=== PATIENT | male | born 2000 | race Caucasian/White ===

== ENCOUNTER 2019-02-10 10:53 | Observation (INO) ==
--- NOTE | 2019-02-10 11:58 | Emergency Department Note ---
History of Present Illness General Chief complaint: Abdominal Pain Stated complaint: RT SIDED ABD PAIN Time Seen by Provider: 02/10/19 11:46 History of Present Illness Maximum Pain Intensity: 8 18-year-old male who presents to the emergency department for evaluation of right lower quadrant abdominal pain. The patient reports that he had "hunger pain" yesterday morning upon awakening. By noontime, he reports generalized central and right lower quadrant abdominal pain that has progressively worsened throughout last evening and this morning. The patient was seen at [facility] this morning, and referred to the emergency department for possible appendicitis. The patient has not noticed any change in urine or stool. The patient does report a history of anal fissure that is scheduled to be repaired by a surgeon either over winter or summer. The patient is a University student, and reports that the surgeon said that it was not an urgent surgical issue. The patient denies any testicular pain, back pain or flank pain. He reports mild nausea without vomiting. He rates his discomfort an 8 out of 10. He has not taken any analgesics for the pain this morning. Home Medications Home Medications Medication Instructions Recorded Confirmed Type ibuprofen [Advil] 200 mg PO Q6H PRN 02/10/19 02/10/19 History Allergies Allergy/AdvReac Type Severity Reaction Status Date / Time No Known Allergies Allergy Unverified 02/10/19 12:07 Past Med/Surg History Medical History Anal fistula Surgical History No significant past surgical history Social History Preferred Language: Icelandic Communication Ability: Effective Center Consultant Required: No Beliefs That Will Affect Care: None marital status: Single Current Living Situation: Other Current Living Situation Comment: [facility] current occupational status: student Other Information That Helps Us Care for You: No Feels Safe at Home: Yes Safety Concerns: Feels Safe At This Time Smoking Status: Never smoker Do You Dip or Chew Tobacco: No ; Hx Alcohol Use: No Hx Substance Use: No Review of Systems 10 system review was performed and was negative except for pertinent positives and negatives as indicated in history of present illness Physical Exam Vital Signs Vital Signs - 24 hr 02/10/19 11:02 02/10/19 13:06 02/10/19 15:40 Temperature 37 C Temperature Source Oral Pulse Rate 121 H 78 Pulse Rate [Apical] Pulse Rate [Finger] 106 H Pulse Rhythm [Apical] Pulse Strength [Finger] Respiratory Rate 18 20 18 Respiratory Effort / Characteristics Non-Labored Spontaneous Respiratory Depth Normal Respiratory Pattern Regular Blood Pressure 116/65 118/65 Blood Pressure [Left Arm] 115/58 L Blood Pressure Mean 82 Blood Pressure Mean [Left Arm] 77 Blood Pressure Position Sitting Blood Pressure Position [Left Arm] Pulse Oximetry 97 98 98 Oxygen Delivery Method Room Air Room Air Room Air Oxygen Flow Rate Sepsis Recent Fever Within 48 Hours No Sepsis New/Unexplained Change in Mental Status No Sepsis Action Taken by Nursing No Action Required 02/10/19 15:48 02/10/19 16:51 02/10/19 17:00 Temperature 37.4 C 36.7 C Temperature Source Oral Temporal Artery Scan Pulse Rate Pulse Rate [Apical] 87 96 H Pulse Rate [Finger] 111 H Pulse Rhythm [Apical] Regular Regular Pulse Strength [Finger] Normal Respiratory Rate 18 11 L 16 Respiratory Effort / Characteristics Non-Labored Spontaneous Non-Labored Spontaneous Non-Labored Spontaneous Respiratory Depth Normal Normal Normal Respiratory Pattern Regular Regular Regular Blood Pressure Blood Pressure [Left Arm] 121/61 112/66 112/73 Blood Pressure Mean Blood Pressure Mean [Left Arm] 81 81 86 Blood Pressure Position Blood Pressure Position [Left Arm] Sitting Lying Lying Pulse Oximetry 98 99 100 Oxygen Delivery Method Room Air Oxymask Oxymask Oxygen Flow Rate 10 10 Sepsis Recent Fever Within 48 Hours Sepsis New/Unexplained Change in Mental Status Sepsis Action Taken by Nursing 02/10/19 17:10 02/10/19 17:20 Temperature Temperature Source Pulse Rate Pulse Rate [Apical] 73 81 Pulse Rate [Finger] Pulse Rhythm [Apical] Regular Regular Pulse Strength [Finger] Respiratory Rate 16 15 Respiratory Effort / Characteristics Non-Labored Spontaneous Non-Labored Spontaneous Respiratory Depth Normal Normal Respiratory Pattern Regular Regular Blood Pressure Blood Pressure [Left Arm] 109/65 116/67 Blood Pressure Mean Blood Pressure Mean [Left Arm] 79 83 Blood Pressure Position Blood Pressure Position [Left Arm] Lying Lying Pulse Oximetry 99 96 Oxygen Delivery Method Oxymask Room Air Oxygen Flow Rate 10 Sepsis Recent Fever Within 48 Hours Sepsis New/Unexplained Change in Mental Status Sepsis Action Taken by Nursing CONSTITUTIONAL: Healthy and well nourished. Alert and oriented X 3. Patient does not appear in any acute distress. HEENT: Normocephalic, atraumatic. Pupils equal, round and reactive. No scleral icterus or conjunctival injection/pallor. NECK: Full active range of motion without discomfort. LYMPHATICS: No cervical chain adenopathy. RESPIRATORY: Clear to auscultation bilaterally with no wheezing, crackles, rhonchi or stridor. CARDIOVASCULAR: Regular rate and rhythm with no murmurs, rubs or gallops. GASTROINTESTINAL: Bowel sounds present in all quadrants. Patient has a positive McBurney's point tenderness, positive Rovsing sign and positive p soas/obturator sign. Negative heel tap. Negative CVA tenderness. No obvious rigidity, guarding or rebound. MUSCULOSKELETAL: Full range of motion of all joints without discomfort. INTEGUMENTARY: No rash or other significant dermatologic conditions noted. HEMATOLOGIC: No ecchymosis or petechiae. PSYCHIATRIC: Positive affect. NEUROLOGIC: No focal neurologic deficits noted. Course Course Patient history and physical exam were performed. Nurse's notes were reviewed. Vital signs were reviewed and were normal. The patient refused any analgesics or antiemetics. Labs were reviewed to show a market leukocytosis of over 18,000 with left shift and bandemia. He is mildly hyponatremic at 135. AST and total bilirubin are also elevated at 68 and 1.2, respectively. Lipase is normal. Urinalysis shows 1+ proteinuria, 4+ ketonuria, hematuria and urine bilirubin. No urine bacteria, leukocyte esterase or nitrites. CT of the abdomen and pelvis with IV contrast confirms an uncomplicated acute appendicitis. The case, including CT imaging and abnormal lab results were discussed with Dr. Shirley, ED attending physician, who recommended surgical consultation. The case was then discussed with Dionne Beltrán PA-C, working with Dr. Sarmiento, who came to the emergency department for further reevaluation. Please see Dr. Sarmiento's dictation for further surgical treatment and final disposition. Administered Medications Ioversol (Optiray 320 100ml) 93 ml IV ONCE PRN PRN Reason: Interaction Checking Stop: 02/14/19 12:52 Last Admin: 02/10/19 12:54 Dose: 93 ml Documented by: [id number] Discontinued Medications Bupivacaine HCl (Marcaine 0.5% Mpf) Confirm Administered Dose 30 ml .ROUTE .K- MED ONE Stop: 02/10/19 15:09 Last Admin: 02/10/19 16:37 Dose: 30 ml Documented by: [id number] Cefoxitin Sodium 2,000 mg/ (Dextrose) 60 mls @ 100 mls/hr IV Q6H [facility] Stop: 02/20/19 15:59 Last Infusion: 02/10/19 18:22 Dose: 0 mls/hr Documented by: [id number] Admin: 02/10/19 15:33 Dose: 100 mls/hr Documented by: [id number] Sodium Chloride (Nss 1000ml) 1,000 mls @ 125 mls/hr IV .Q8H [facility] Stop: 03/12/19 15:14 Last Admin: 02/10/19 18:22 Dose: Not Given Documented by: [id number] Medical Decision Making Medical Records Attestation: I reviewed the patient's medical records. Home Medications Current Medication List: was personally reviewed by me Laboratory Data Attestation: I reviewed the patient's lab results. Result diagrams: 02/10/19 11:32 02/10/19 11:32 Lab Results 02/10/19 02/10/19 02/10/19 Range/Units 11:32 11:32 11:32 WBC 18.01 H (4.8-10.8) K/uL RBC 4.69 L (4.7-6.1) M/uL Hgb 15.0 (14.0-18.0) g/dL Hct 42.7 (42-52) % MCV 91.0 (80-100) fL MCH 32.0 (25-34) pg MCHC 35.1 (32-36) g/dL Plt Count 177 (130-400) K/uL Immature Gran % (Auto) 0.4 % Neut % (Auto) 78.6 % Lymph % (Auto) 6.3 % Elbert % (Auto) 14.5 % Eos % (Auto) 0.1 % Baso % (Auto) 0.1 % Immature Gran # (Auto) 0.07 H (0.00-0.02) K/uL Neut # (Auto) 14.15 H (1.4-6.5) K/uL Lymph # (Auto) 1.14 L (1.2-3.4) K/uL Elbert # (Auto) 2.62 H (0.11-0.59) K/uL Eos # (Auto) 0.01 (0-0.5) K/uL Baso # (Auto) 0.02 (0-0.2) K/uL Sodium 135 L (136-145) mmol/L Potassium 3.7 (3.5-5.1) mmol/L Chloride 104 (98-107) mmol/L Carbon Dioxide 24 (21-32) mmol/L Anion Gap 8.0 (3-11) BUN 13 (7-18) mg/dl Creatinine 1.14 (0.6-1.4) mg/dl Est Cr Clr Drug Dosing 110.8 ml/min Est GFR ( Amer) 107.5 Est GFR (Non-Af Amer) 92.7 BUN/Creatinine Ratio 11.4 (10-20) Glucose 101 H (70-99) mg/dl Calcium 9.3 (8.5-10.1) mg/dl Total Bilirubin 1.2 H (0.2-1) mg/dl AST 68 H (15-37) U/L ALT 31 (12-78) U/L Alkaline Phosphatase 95 (45-117) U/L Total Protein 7.6 (6.4-8.2) gm/dl Albumin 4.0 (3.4-5.0) gm/dl Globulin 3.6 (2.5-4.0) gm/dl Albumin/Globulin Ratio 1.1 (0.9-2) Lipase 112 (73-393) U/L Urine Color Kidder Urine Appearance Clear (Clear) Urine pH 6.0 (4.5-7.5) Ur Specific Gordon 1.038 H (1.000-1.030) Urine Protein 1+ H (Negative) Urine Glucose (UA) Negative (Negative) Urine Ketones 4+ H (Negative) Urine Blood 1+ H (Negative) Urine Nitrite Negative (Negative) Urine Bilirubin 1+ H (Negative) Urine Urobilinogen Negative (Negative) Ur Leukocyte Esterase Negative (Negative) Urine WBC (Auto) 1-5 (0-5) /hpf Urine RBC (Auto) 5-10 H (0-4) /hpf U Hyaline Cast (Auto) 1-5 (0-5) /lpf U Epithel Cells (Auto) 5-10 H (0-5) /lpf Urine Bacteria (Auto) Negative (Negative) Imaging Data Attestation: I personally reviewed and interpreted this imaging study as follows: My Impression: My interpretation of a CT of the abdomen and pelvis with IV contrast shows evidence for acute appendicitis. No other obstructive pattern, free fluid or air appreciated. Radiologist report was also reviewed. Radiologist's Impression: CT SCAN OF THE ABDOMEN AND PELVIS WITH IV CONTRAST CLINICAL HISTORY: Right lower quadrant abdominal pain. COMPARISON STUDY: No priors. TECHNIQUE: Following the IV administration of 93 cc of Optiray 320, CT scan of the abdomen and pelvis is performed from the lung bases to the proximal femora. Images are reviewed in the axial, sagittal, and coronal planes. IV contrast was administered without complication. A dose lowering technique was utilized adhering to the principles of ALARA. CT DOSE: 368.86 mGy.cm FINDINGS: Lung bases: The heart is normal in size and without pericardial effusion. The lung bases are clear. Liver: The contrast-enhanced liver is normal in size, contour, and attenuation. There is no intrahepatic biliary ductal dilatation. The hepatic veins and portal veins are patent. Gallbladder: Unremarkable. Spleen: Normal in size and attenuation. Pancreas: Unremarkable. Adrenal glands: Unremarkable. Kidneys: The contrast enhanced kidneys are normal in size and without hydronephrosis. The kidneys enhance symmetrically. Abdominal vasculature: The abdominal aorta is normal in course and caliber. Bowel: The small bowel and colon are normal in course and caliber. The appendix is distended and fluid-filled measuring up to 1.3 cm in diameter. This is best seen on image #339. The appendiceal wall is thickened and hyperemic. There is periappendiceal inflammation and fluid, and the appearance is consistent with acute appendicitis. No organized fluid collection is seen to indicate abscess. Peritoneum: There is no intraperitoneal free air. There is trace free fluid in the pelvis. There is a small fat-containing umbilical hernia. Lymphadenopathy: None. Pelvic viscera: The bladder, prostate, and seminal vesicles are normal as imaged. Skeletal structures: No lytic or blastic lesions are seen. IMPRESSION: 1. Findings are consistent with acute appendicitis. There is no evidence of abscess or perforation. 2. Trace free fluid in the pelvis is likely on a reactive basis. Blood Pressure Blood Pressure Findings: Normal blood pressure MDM Narrative Patient presents to emergency department with history, and has physical examination findings classic for acute appendicitis. CT imaging does show appendicitis without evidence for perforation or abscess formation. The patient is currently afebrile, but does have a marketed leukocytosis. Additional laboratory studies are not consistent with UTI, pancreatitis, cholecystitis or acute hepatitis. Examination is not consistent with pyelonephritis or diverticulitis. Impression & Plan Acute appendicitis Discharge Plan Visit Data *Final* Discharge Date/Time: 02/10/19 15:40 Chief Complaint: Abdominal Pain Stated Complaint: RT SIDED ABD PAIN ED Provider: Stanley Shirley ED Midlevel Provider: Wilbur Avila Discharge Problem: Acute appendicitis Patient Disposition: Still a Patient Condition: Good Discharge Instructions Interventions: ED Discharge Assessment Last Done: 02/10/19 15:40
[2019-02-10 12:06] LABS: Basophils # (auto) 0.02 K/uL (0-0.2); Basophils % (auto) 0.1 %; Eosinophils # (auto) 0.01 K/uL (0-0.5); Eosinophils % (auto) 0.1 %; Hematocrit (blood only) 42.7 % (42-52); Immature Granulocytes # (auto) 0.07 K/uL (0.00-0.02); Immature Granulocytes % (auto) 0.4 %; Lymphocytes # (auto) 1.14 K/uL (1.2-3.4); Lymphocytes % (auto) 6.3 %; Mean Corpuscular Hgb Conc 35.1 g/dL (32-36); Monocytes # (auto) 2.62 K/uL (0.11-0.59); Monocytes % (auto) 14.5 %; Neutrophils # (auto) 14.15 K/uL (1.4-6.5); Neutrophils % (auto) 78.6 %; Platelet Count 177 K/uL (130-400); Red Blood Count 4.69 M/uL (4.7-6.1); White Blood Count 18.01 K/uL (4.8-10.8)
[2019-02-10 12:12] LABS: BUN Creatinine Ratio 11.4 (10-20); Calcium 9.3 mg/dl (8.5-10.1); Creatinine Clr Calc Pharmacy 110.8 ml/min; Est GFR (African American) 107.5; Est GFR (Non-African American) 92.7; Potassium 3.7 mmol/L (3.5-5.1)
[2019-02-10 12:15] LABS: Albumin Globulin Ratio 1.1 (0.9-2); Bilirubin,Total 1.2 mg/dl (0.2-1); Globulin 3.6 gm/dl (2.5-4.0); Total Protein 7.6 gm/dl (6.4-8.2)
[2019-02-10 12:47] LABS: Appearance Urine Clear (Clear); Bacteria Urine Automated Negative (Negative); Blood Urine 1+ (Negative); Color Urine Orange; Glucose Urine UA Negative (Negative); Leukocyte Esterase Urine Negative (Negative); Nitrite Urine Negative (Negative); Protein Urine 1+ (Negative); Specific Gravity Urine 1.038 (1.000-1.030); Urobilinogen Urine Negative (Negative)
[2019-02-10 12:49] LABS: Bilirubin Urine 1+ (Negative)
[2019-02-10 12:50] LABS: Ketones Urine 4+ (Negative)
[2019-02-10] MEDS ORDERED: IOVERSOL 100ml IV PRN (12:53)
--- NOTE | 2019-02-10 13:12 | CT Scan Report ---
CT SCAN OF THE ABDOMEN AND PELVIS WITH IV CONTRAST CLINICAL HISTORY: Right lower quadrant abdominal pain. COMPARISON STUDY: No priors. TECHNIQUE: Following the IV administration of 93 cc of Optiray 320, CT scan of the abdomen and pelvi s is performed from the lung bases to the proximal femora. Images are reviewed in the axial, sagittal , and coronal planes. IV contrast was administered without complication. A dose lowering technique wa s utilized adhering to the principles of ALARA. CT DOSE: 368.86 mGy.cm FINDINGS: Lung bases: The heart is normal in size and without pericardial effusion. The lung bases are clear. Liver: The contrast-enhanced liver is normal in size, contour, and attenuation. There is no intrahepa tic biliary ductal dilatation. The hepatic veins and portal veins are patent. Gallbladder: Unremarkable. Spleen: Normal in size and attenuation. Pancreas: Unremarkable. Adrenal glands: Unremarkable. Kidneys: The contrast enhanced kidneys are normal in size and without hydronephrosis. The kidneys enh ance symmetrically. Abdominal vasculature: The abdominal aorta is normal in course and caliber. Bowel: The small bowel and colon are normal in course and caliber. The appendix is distended and flu id-filled measuring up to 1.3 cm in diameter. This is best seen on image #339. The appendiceal wall i s thickened and hyperemic. There is periappendiceal inflammation and fluid, and the appearance is con sistent with acute appendicitis. No organized fluid collection is seen to indicate abscess. Peritoneum: There is no intraperitoneal free air. There is trace free fluid in the pelvis. There is a small fat-containing umbilical hernia. Lymphadenopathy: None. Pelvic viscera: The bladder, prostate, and seminal vesicles are normal as imaged. Skeletal structures: No lytic or blastic lesions are seen. IMPRESSION: 1. Findings are consistent with acute appendicitis. There is no evidence of abscess or perforation. 2. Trace free fluid in the pelvis is likely on a reactive basis. Electronically signed by: Bossman Rodríguez M.D. 02/10/2019 1:11 PM
--- NOTE | 2019-02-10 14:42 | History & Physical Report ---
Date of Service February 10, 2019 Assessment & Plan (1) Acute appendicitis: 18 year-old male with one day history of abdominal pain that progressively increased in nature now to RLQ with no associated fever, chills, nausea, or vomiting. CT scan with IV Contrast showing dilated appendix at 1.3 cm with periappendiceal infiltration and fluid but no fluid collection to suggest abscess or perforation. Leukocytosis of 18 with left shift. Plan: Discussed imaging findings and labs with patient. Given appendix dilatation and CT findings, recommend laparoscopic appendectomy possible open. Discussed procedure and risks with patient along with recovery period. All questions were answered Will start on IV fluids and IV Cefoxitin now. Keep NPO Dr. Sarmiento to evaluate patient and obtain consent awaiting for mom to arrive Pt seen and examined with DANIELA Deng. Agree with assessment and plan above. Risks of appendectomy personally reviewed including bleeding,infection, conversion to open, negative appy, postop ileus/ abscess. Consent signed. For OR today. History of Present Illness Chief Complaint: Right lower abdominal pain Primary Care Provider: [facility] Gordo is a 18 year-old male who presented to emergency department with complaint of abdominal pain that began yesterday morning. States pain was more generalized yesterday and increased in severity throughout the day and night. States pain is now located in right lower side. Denies of any previous similar abdominal pain. Denies of any associated fever, chills, nausea, vomiting, anorexia, changes in bowel habits, diarrhea, constipation, blood in stools, difficulty urinating, dysuria, hematuria. Last ate last evening and had some water at 9 am. Er work-up included labs which showed leukocytosis of 18k. CT scan of abdomen and pelvis with IV contrast showing distended appendix at 1. 3 cm with periappendiceal inflammation and fluid. No fluid collection to suggest abscess consistent with noncomplicated acute appendicitis Gordo states pain is manageable if he lies still and does not move. Movement makes pain worse. Has not received any pain medication. Mom is currently traveling from [facility]. Allergies Allergy/AdvReac Type Severity Reaction Status Date / Time No Known Allergies Allergy Unverified 02/10/19 12:07 Home Medications Home Medications Medication Instructions Recorded Confirmed Type ibuprofen [Advil] 200 mg PO Q6H PRN 02/10/19 02/10/19 History Past Med/Surg History Medical History Anal fistula Surgical History No significant past surgical history Social History (Updated 02/10/19 @ 11:58 by Wilbur Avila) Preferred Language: Togolese marital status: Single current occupational status: student Feels Safe at Home: Yes Smoking Status: Never smoker Physical Exam Constitutional: WD/WN, vitals as above no acute distress Respiratory: normal respiratory effort, lungs clear to auscultation Cardiovascular: Rate/Rhythm: regular rhythm and + tachycardic Heart Sounds: normal S1 and normal S2 Gastrointestinal (Abdomen): Inspection/Auscultation: abdomen normal to inspection; abdomen not distended Percussion/Palpation: + abdomen tender (RLQ, positive mcburneys point, rosvings sign) Skin: no rashes, warm and dry Psychiatric: A+Ox3, euthymic affect Results & Data Vital Signs (Past 12 Hours) Vital Signs Temp Pulse Pulse Resp BP BP Pulse Ox 02/10/19 13:06 106 H 20 115/58 L 98 02/10/19 11:02 37 C 121 H 18 116/65 97 Laboratory Results 02/10/19 02/10/19 02/10/19 Range/Units 11:32 11:32 11:32 WBC 18.01 H (4.8-10.8) K/uL RBC 4.69 L (4.7-6.1) M/uL Hgb 15.0 (14.0-18.0) g/dL Hct 42.7 (42-52) % MCV 91.0 (80-100) fL MCH 32.0 (25-34) pg MCHC 35.1 (32-36) g/dL Plt Count 177 (130-400) K/uL Immature Gran % (Auto) 0.4 % Neut % (Auto) 78.6 % Lymph % (Auto) 6.3 % Dolores % (Auto) 14.5 % Eos % (Auto) 0.1 % Baso % (Auto) 0.1 % Immature Gran # (Auto) 0.07 H (0.00-0.02) K/uL Neut # (Auto) 14.15 H (1.4-6.5) K/uL Lymph # (Auto) 1.14 L (1.2-3.4) K/uL Dolores # (Auto) 2.62 H (0.11-0.59) K/uL Eos # (Auto) 0.01 (0-0.5) K/uL Baso # (Auto) 0.02 (0-0.2) K/uL Sodium 135 L (136-145) mmol/L Potassium 3.7 (3.5-5.1) mmol/L Chloride 104 (98-107) mmol/L Carbon Dioxide 24 (21-32) mmol/L Anion Gap 8.0 (3-11) BUN 13 (7-18) mg/dl Creatinine 1.14 (0.6-1.4) mg/dl Est Cr Clr Drug Dosing 110.8 ml/min Est GFR ( Amer) 107.5 Est GFR (Non-Af Amer) 92.7 BUN/Creatinine Ratio 11.4 (10-20) Glucose 101 H (70-99) mg/dl Calcium 9.3 (8.5-10.1) mg/dl Total Bilirubin 1.2 H (0.2-1) mg/dl AST 68 H (15-37) U/L ALT 31 (12-78) U/L Alkaline Phosphatase 95 (45-117) U/L Total Protein 7.6 (6.4-8.2) gm/dl Albumin 4.0 (3.4-5.0) gm/dl Globulin 3.6 (2.5-4.0) gm/dl Albumin/Globulin Ratio 1.1 (0.9-2) Lipase 112 (73-393) U/L Urine Color Talbot Urine Appearance Clear (Clear) Urine pH 6.0 (4.5-7.5) Ur Specific [place] 1.038 H (1.000-1.030) Urine Protein 1+ H (Negative) Urine Glucose (UA) Negative (Negative) Urine Ketones 4+ H (Negative) Urine Blood 1+ H (Negative) Urine Nitrite Negative (Negative) Urine Bilirubin 1+ H (Negative) Urine Urobilinogen Negative (Negative) Ur Leukocyte Esterase Negative (Negative) Urine WBC (Auto) 1-5 (0-5) /hpf Urine RBC (Auto) 5-10 H (0-4) /hpf U Hyaline Cast (Auto) 1-5 (0-5) /lpf U Epithel Cells (Auto) 5-10 H (0-5) /lpf Urine Bacteria (Auto) Negative (Negative) Diagnostic Findings CT SCAN OF THE ABDOMEN AND PELVIS WITH IV CONTRAST CLINICAL HISTORY: Right lower quadrant abdominal pain. COMPARISON STUDY: No priors. TECHNIQUE: Following the IV administration of 93 cc of Optiray 320, CT scan of the abdomen and pelvis is performed from the lung bases to the proximal femora. Images are reviewed in the axial, sagittal, and coronal planes. IV contrast was administered without complication. A dose lowering technique was utilized adhering to the principles of ALARA. CT DOSE: 368.86 mGy.cm FINDINGS: Lung bases: The heart is normal in size and without pericardial effusion. The lung bases are clear. Liver: The contrast-enhanced liver is normal in size, contour, and attenuation. There is no intrahepatic biliary ductal dilatation. The hepatic veins and portal veins are patent. Gallbladder: Unremarkable. Spleen: Normal in size and attenuation. Pancreas: Unremarkable. Adrenal glands: Unremarkable. Kidneys: The contrast enhanced kidneys are normal in size and without hydronephrosis. The kidneys enhance symmetrically. Abdominal vasculature: The abdominal aorta is normal in course and caliber. Bowel: The small bowel and colon are normal in course and caliber. The appendix is distended and fluid-filled measuring up to 1.3 cm in diameter. This is best seen on image #339. The appendiceal wall is thickened and hyperemic. There is periappendiceal inflammation and fluid, and the appearance is consistent with acute appendicitis. No organized fluid collection is seen to indicate abscess. Peritoneum: There is no intraperitoneal free air. There is trace free fluid in the pelvis. There is a small fat-containing umbilical hernia. Lymphadenopathy: None. Pelvic viscera: The bladder, prostate, and seminal vesicles are normal as imaged. Skeletal structures: No lytic or blastic lesions are seen. IMPRESSION: 1. Findings are consistent with acute appendicitis. There is no evidence of abscess or perforation. 2. Trace free fluid in the pelvis is likely on a reactive basis. Code Status & VTE Plan VTE Prophylaxis Plan VTE Prophylaxis will be ordered: Yes
[2019-02-10] MEDS ORDERED: LIDOCAINE HCL 2% 2 ML VIAL/AMP(20MG/ML) INFIL ONE (15:07)
[2019-02-10] MEDS ORDERED: DEXAMETHASONE SOD INJ 4 MG/ML VIAL ONE (15:07)
[2019-02-10] MEDS ORDERED: ONDANSETRON INJ 2 MG/ML 2 ML VIAL ONE (15:07)
[2019-02-10] MEDS ORDERED: PROPOFOL IV EMULSION 10 MG/ML 20 ML VIAL IV ONE (15:07)
[2019-02-10] MEDS ORDERED: NEOSTIGMINE METHYLSULFATE 5 MG/5 ML SYR ONE (15:07)
[2019-02-10] MEDS ORDERED: GLYCOPYRROLATE 0.2 MG/ML VIAL ONE ×2 (15:07→16:32)
[2019-02-10] MEDS ORDERED: fentaNYL citrate 100 MCG/2 ML VIAL ONE ×2 (15:07→16:21)
[2019-02-10] MEDS ORDERED: MIDAZOLAM HCL 1 MG/ML 2ML VIAL ONE (15:07)
[2019-02-10] MEDS ORDERED: BUPIVACAINE 0.5 % 5 MG/1 ML MPF 30ML VIAL ONE (15:08)
[2019-02-10] MEDS ORDERED: fentaNYL citrate 100 MCG/2 ML VIAL IV PRN (15:14)
[2019-02-10] MEDS ORDERED: HYDROmorphone INJ 1 MG/ML SYRINGE IV PRN (15:14)
[2019-02-10] MEDS ORDERED: ONDANSETRON INJ 2 MG/ML 2 ML VIAL IV PRN ×2 (15:14→17:56)
[2019-02-10] MEDS ORDERED: ePHEDrine sulfate 50 MG/ML AMP IV PRN (15:14)
[2019-02-10] MEDS ORDERED: ATROPINE SULFATE 0.1 MG/ML 10ML SYR IV PRN (15:14)
[2019-02-10] MEDS ORDERED: SODIUM CHLORIDE 0.9% 1000ML 1,000 ML IV SCH (15:15)
--- NOTE | 2019-02-10 15:19 | Anesthesiology Consultation ---
Date of Service February 10, 2019 Assessment & Plan (1) Encounter for pre-operative examination: Chart Review Chart Review: Acceptable Risk for Surgery and Patient NOT seen in Pre Admission Testing Consults Requested none History Surgery Operation Date: 02/10/19 07:30 Proposed Procedures p Laparoscopic Appendectomy - Bhargavi Sarmiento MD Height/Weight Height: 5 ft 8.5 in Weight: 83.5 kg Allergies Allergy/AdvReac Type Severity Reaction Status Date / Time No Known Allergies Allergy Unverified 02/10/19 12:07 Medications Home Medications Medication Instructions Recorded Confirmed Last Taken ibuprofen [Advil] 200 mg PO Q6H PRN 02/10/19 02/10/19 02/09/19 Active Medications Generic Name Dose Route Start Last Admin Trade Name Freq PRN Reason Stop Dose Admin Cefoxitin Sodium 2,000 mg/ 60 mls @ 100 mls/hr 02/10/19 16:00 02/10/19 15:33 Dextrose IV 02/20/19 15:59 100 mls/hr Q6H MICHELLE Administration Ioversol 93 ml 02/10/19 12:53 02/10/19 12:54 Optiray 320 100ml IV 02/14/19 12:52 93 ml ONCE PRN Administration Interaction Checking NPO Date Last Intake of Fluids: 02/10/19 Time Last Intake of Fluids: 09:00 Last Intake of Fluids Comment: water Date Last Intake of Solids: 02/09/19 Time Last Intake of Solids: 18:00 Last Intake of Solids Comment: salad Past Medical History Medical History Anal fistula Exercise / Class Metabolic Activity 1 > 8 Run/Swim/Ski/Tennis Past Surgical History Surgical History No significant past surgical history Past Anesthesia History No Hx of Anesthesia Complications and No Family Hx of Anesthesia Complications History of PONV No Hx of PONV and No Hx of Motion Sickness Social History Smoking Status: Never smoker Do You Dip or Chew Tobacco: No Hx Alcohol Use: No Hx Substance Use: No Physical Exam Vital Signs Last Vital Signs Temp 37 C 02/10/19 11:02 Pulse 78 02/10/19 15:40 Resp 18 02/10/19 15:40 BP 118/65 02/10/19 15:40 Pulse Ox 98 12/06/19 15:40 Testing Laboratory Results 02/10/19 11:32 02/10/19 11:32 Urine Color [place] 02/10/19 11:32 Urine Appearance Clear (Clear) 02/10/19 11:32 Urine pH 6.0 (4.5-7.5) 02/10/19 11:32 Ur Specific [place] 1.038 (1.000-1.030) H 02/10/19 11:32 Urine Protein 1+ (Negative) H 02/10/19 11:32 Urine Glucose (UA) Negative (Negative) 02/10/19 11:32 Urine Ketones 4+ (Negative) H 02/10/19 11:32 Urine Nitrite Negative (Negative) 02/10/19 11:32 Ur Leukocyte Esterase Negative (Negative) 02/10/19 11:32 Urine WBC (Auto) 1-5 /hpf (0-5) 02/10/19 11:32 Urine RBC (Auto) 5-10 /hpf (0-4) H 02/10/19 11:32 U Hyaline Cast (Auto) 1-5 /lpf (0-5) 02/10/19 11:32 U Epithel Cells (Auto) 5-10 /lpf (0-5) H 02/10/19 11:32 Urine Bacteria (Auto) Negative (Negative) 02/10/19 11:32
[2019-02-10] MEDS ORDERED: cefOXitin 2,000 MG in DEXTROSE 5% 50 ML IV SCH (16:00)
--- NOTE | 2019-02-10 16:49 | Operative Report ---
Post Operative Report Pre & Post Diagnosis Operation Date: 02/10/19 07:30 Pre-Op Diagnosis: acute appendicitis Post-Op Diagnosis: acute suppurative appendicitis I identified the patient and participated in the time-out.: Yes Procedure Operation Date: 02/10/19 07:30 Actual Procedures p Laparoscopic Appendectomy(Not Applicable) - Bhargavi Sarmiento MD Surgeon Bhargavi Sarmiento MD Probate Lawyer DANIELA Deng Estimated Blood Loss 5 Findings Consistent with Post-Op Diagnosis Specimens appendix Description of Procedure see dictated operative report I attest to the content of the Intraoperative Record and any orders documented therein. Any exceptions are noted below.
--- NOTE | 2019-02-10 17:21 | Operative Report ---
DATE OF OPERATION: 02/10/2019 PREOPERATIVE DIAGNOSIS: Acute appendicitis. POSTOPERATIVE DIAGNOSIS: Acute appendicitis. OPERATIVE PROCEDURE: Laparoscopic appendectomy. SURGEON: Dr. Bhargavi Sarmiento. MAT MACHINE TENDER: Dionne Beltrán PA-C. ANESTHESIA: General endotracheal anesthesia. ASA class 1E. ESTIMATED BLOOD LOSS: 5 mL. IV FLUIDS: 700 mL. SPECIMENS: Appendix. DRAINS: None. COMPLICATIONS: None. OPERATIVE FINDINGS: Acute suppurative nonperforated appendicitis. INDICATIONS: The patient is a 18-year-old young student who presented with acute appendicitis. He was consented for laparoscopic appendectomy. DESCRIPTION OF PROCEDURE: The patient received Mefoxin preoperatively. After the induction of general endotracheal anesthesia, he had placement of sequential compression devices. He was positioned with his left arm tucked. His abdomen was clipped and then sterilely prepped and draped. He was placed in Trendelenburg. A supraumbilical incision was made and a Veress needle was placed into the peritoneal cavity. This was tested with the saline drop test. Pneumoperitoneum was established with initial pressure of 2 mmHg being taken up to 15 mmHg. A 12 mm trocar was placed using the camera within the trocar as guidance. Two 5 mm were then placed, 1 in the left lower abdomen, 1 in the midline pubic area under direct vision. The appendix was visualized coursing inferiorly and stuck to the right lateral pelvic side wall. This was cleared with suppurative adhesions and followed to the base on the cecum. A window was created at the base of the appendix on the cecum and it was divided here with a firing of the JORGE-45 purple load stapler. The appendiceal mesentery was taken with a second firing of the JORGE-45 yang load stapler. The appendix was placed in an Endobag and removed through the umbilical incision. Hemostasis was noted to be present. The abdomen was irrigated and suctioned until the effluent was clear. The trocars were removed. A 30 mL of 0.5% Marcaine had been used for local anesthesia. The fascia of the umbilical incision was closed with 0 Vicryl stitches placed anteriorly. The skin of all 3 incisions was closed with running subcuticular 4-0 Vicryl sutures. Steri-Strips and sterile dressings were applied. He was awakened and taken to recovery in stable condition. ATTESTATION: There was no surgical specialist available for the case. The DANIELA assisted both with the camera as well as with both entering the abdomen and then closing. I attest to the content of the Intraoperative Record and any orders documented therein. Any exception s are noted below.
[2019-02-10] MEDS ORDERED: OXYCODONE/ACETAMINOPHEN 5mg/325mg TAB PO PRN ×2 (17:56)
[2019-02-10] MEDS ORDERED: ACETAMINOPHEN 325 MG TAB PO PRN (17:56)
[2019-02-10] MEDS ORDERED: IBUPROFEN 200 MG TAB PO PRN (17:56)
[2019-02-10] MEDS ORDERED: MoRPHine SULFATE 2 MG/ML CARP IV PRN (17:56)
[2019-02-10] MEDS ORDERED: MoRPHine SULFATE 4 MG/ML 1 ML CARP\\VIAL IV PRN (17:56)
--- NOTE | 2019-02-10 18:11 | Anesthesiology Progress Note ---
Date of Service February 10, 2019 Anesthesia Post Procedure Vital Signs Vital Signs: Temp Pulse Pulse Pulse Resp BP BP 02/10/19 17:20 81 15 116/67 02/10/19 17:10 73 16 109/65 02/10/19 17:00 96 H 16 112/73 02/10/19 16:51 36.7 C 87 11 L 112/66 02/10/19 15:48 37.4 C 111 H 18 121/61 02/10/19 15:40 78 18 118/65 02/10/19 13:06 106 H 20 115/58 L 02/10/19 11:02 37 C 121 H 18 116/65 Pulse Ox 02/10/19 17:20 96 02/10/19 17:10 99 02/10/19 17:00 100 02/10/19 16:51 99 02/10/19 15:48 98 02/10/19 15:40 98 02/10/19 13:06 98 02/10/19 11:02 97 Pain Intensity Right Abdomen: Pain Intensity: 7 Transfer of Care Handoff Completed per policy Notes Mental Status: alert / awake / arousable and participated in evaluation Patient Amnestic to Procedure: Yes Nausea / Vomiting: adequately controlled Pain: adequately controlled Airway Patency, RR, SpO2: stable & adequate BP & HR: stable & adequate Hydration State: stable & adequate Anesthetic Complications: no major complications apparent and Pt Satisfied with anesthetic care
[2019-02-10] MEDS: SODIUM CHLORIDE 0.9% 1000ML 1,000 ML IV SCH (19:00)
[2019-02-10] MEDS: cefOXitin 2,000 MG in DEXTROSE 5% 50 ML IV SCH (21:40)
[2019-02-11] MEDS: cefOXitin 2,000 MG in DEXTROSE 5% 50 ML IV SCH (04:01)
[2019-02-11] MEDS: SODIUM CHLORIDE 0.9% 1000ML 1,000 ML IV SCH (06:41)
--- NOTE | 2019-02-11 09:58 | Surgery Progress Note ---
Date of Service February 11, 2019 Assessment & Plan (1) Acute appendicitis: s/p lap appy. doing well. encouraged PO advil or tylenol. OK to discharge today. Subjective Doing well. Not taking anything for pain. He is a little sore this morning. Tolerating PO intake. Review of Systems Review of Systems: All systems reviewed & are unremarkable except as noted in HPI & below Physical Exam Constitutional: WD/WN, vitals as above Respiratory: normal respiratory effort, lungs clear to auscultation Cardiovascular: RRR, no murmur, no edema Gastrointestinal (Abdomen): Inspection/Auscultation: normal bowel sounds Percussion/Palpation: + abdomen tender (at incisions) and abdomen soft dressings with small amount of dried blood Results & Data Vital Signs (Past 12 Hours) Vital Signs Temp Pulse Resp BP Pulse Ox 02/11/19 07:25 36.5 C 81 14 94/57 L 96 02/11/19 03:27 36.7 C 59 L 14 108/65 95 02/10/19 23:02 36.5 C 68 14 115/64 95
--- NOTE | 2019-02-11 10:00 | Discharge Summary ---
Date of Service February 11, 2019 Admission HPI Per Admitting Provider Gordo is a 18 year-old male who presented to emergency department with complaint of abdominal pain that began yesterday morning. States pain was more generalized yesterday and increased in severity throughout the day and night. States pain is now located in right lower side. Denies of any previous similar abdominal pain. Denies of any associated fever, chills, nausea, vomiting, anorexia, changes in bowel habits, diarrhea, constipation, blood in stools, difficulty urinating, dysuria, hematuria. Last ate last evening and had some water at 9 am. Er work-up included labs which showed leukocytosis of 18k. CT scan of abdomen and pelvis with IV contrast showing distended appendix at 1. 3 cm with periappendiceal inflammation and fluid. No fluid collection to suggest abscess consistent with noncomplicated acute appendicitis Gordo states pain is manageable if he lies still and does not move. Movement makes pain worse. Has not received any pain medication. Mom is currently traveling from [facility]. Admission Exam (Per Admitting) Constitutional WD/WN, vitals as above Respiratory normal respiratory effort, lungs clear to auscultation Cardiovascular RRR, no murmur, no edema Gastrointestinal (Abdomen) Inspection/Auscultation: normal bowel sounds Percussion/Palpation: + abdomen tender (at incisions) and abdomen soft Discharge Data Consultations 02/10/19 13:24 ED Decision to Admit Stat Procedures Performed Operation Date: 02/10/19 07:30 Actual Procedures p Laparoscopic Appendectomy(Not Applicable) - Bhargavi Sarmiento MD Hospital Course (1) Acute appendicitis: s/p lap appy. doing well. encouraged PO advil or tylenol. OK to discharge today.
--- NOTE | 2019-02-11 10:18 | Anesthesiology Progress Note ---
Date of Service February 11, 2019 Anesthesia Post Procedure Vital Signs Vital Signs: Temp Pulse Pulse Pulse Pulse Resp BP 02/11/19 10:09 36.5 C 83 81 14 02/11/19 07:25 36.5 C 81 14 02/11/19 03:27 36.7 C 59 L 14 02/10/19 23:02 36.5 C 68 14 02/10/19 19:54 36.7 C 83 16 02/10/19 18:52 87 20 02/10/19 18:26 36.4 C L 89 20 02/10/19 17:50 37.2 C 85 18 02/10/19 17:20 81 15 02/10/19 17:10 73 16 02/10/19 17:00 96 H 16 02/10/19 16:51 36.7 C 87 11 L 02/10/19 15:48 37.4 C 111 H 18 02/10/19 15:40 78 18 118/65 02/10/19 13:06 106 H 20 02/10/19 11:02 37 C 121 H 18 116/65 BP Pulse Ox 02/11/19 10:09 94/57 L 96 02/11/19 07:25 94/57 L 96 02/11/19 03:27 108/65 95 02/10/19 23:02 115/64 95 02/10/19 19:54 98/64 L 96 02/10/19 18:52 112/69 95 02/10/19 18:26 105/62 96 02/10/19 17:50 113/70 97 02/10/19 17:20 116/67 96 02/10/19 17:10 109/65 99 02/10/19 17:00 112/73 100 02/10/19 16:51 112/66 99 02/10/19 15:48 121/61 98 02/10/19 15:40 98 02/10/19 13:06 115/58 L 98 02/10/19 11:02 97 Pain Intensity Right Abdomen: Pain Intensity: 2 Notes Mental Status: alert / awake / arousable Patient Amnestic to Procedure: Yes Nausea / Vomiting: adequately controlled Pain: adequately controlled Airway Patency, RR, SpO2: stable & adequate BP & HR: stable & adequate Hydration State: stable & adequate Anesthetic Complications: no major complications apparent and Pt Satisfied with anesthetic care
== END 2019-02-11 11:21 | disposition home or self-care (01) ==
LOC: ED 10:53 → OR 15:40 → 3W 15:40
DX: K35.80 Unspecified acute appendicitis